=== PATIENT | female | born 1995 | race Asian ===

== ENCOUNTER 2018-05-04 00:45 | Emergency (ER) | payer SELFPAY ==
[~2018-05-04] VITALS: Ht 170.2 cm; Wt 72.7 kg
[2018-05-04] MEDS ORDERED: AMMONIA 1 EA AMP IH ONE (01:05)
[2018-05-04] MEDS ORDERED: SODIUM CHLORIDE 0.9% 1,000 ML IV ONE (01:15)
[2018-05-04 06:00] VITALS: BP 112/54
== END 2018-05-04 06:30 | disposition home or self-care (01) ==
LOC: EMS 00:47
DX: F10.129 Alcohol abuse with intoxication, unspecified (principal); R41.82 Altered mental status, unspecified; Y90.8 Blood alcohol level of 240 mg/100 ml or more
CPT/HCPCS: 36415; 99283; G0480; J7030